=== PATIENT | male | born 1975 | race Caucasian/White ===

== ENCOUNTER 2020-06-29 10:33 | Emergency (ER) | payer OTHER, SELFPAY ==
--- NOTE | 2020-06-29 10:38 | ED.GENADULT ---
HPI - General Adult General Chief complaint: Neck Pain/Injury Stated complaint: Head and Neck Pain Time Seen by Provider: 06/29/20 10:51 Source: patient Mode of arrival: ambulatory Limitations: no limitations History of Present Illness HPI narrative: 44-year-old male patient presents to the [facility] with complaints of head and neck pain. 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 Patient states that he had a pretty hard and he actually did fall back. Denies loss of consciousness. Patient states he has a headache now at this time and rates about 7 out of 10. Patient states he did have a little bit of blurred vision right afterwards but denies any vision changes now. Patient states that he did vomit once since the injury. Patient also complaining of some neck pain and states it hurts when putting his chin to his chest. Patient denies any chest pain or shortness of breath. Denies taking anything for his pain since the incident. Patient states he is also having some numbness and tingling to bilateral upper extremities. Related Data Home Medications Medication Instructions Recorded Confirmed metformin 1,000 mg PO BID 06/29/20 06/29/20 Allergies Allergy/AdvReac Type Severity Reaction Status Date / Time No Known Drug Allergies Allergy Unknown Unknown Verified 06/29/20 10:52 Review of Systems Review of Systems: Narrative: CONSTITUTIONAL: Denies fever, chills, or sweats. EYES: Denies visual changes, redness, or discharge. ENT: Denies rhinorrhea, congestion, sore throat, or otalgia. CARDIOVASCULAR: Denies chest pain, palpitations, or edema. RESPIRATORY: Denies cough or dyspnea. GASTROINTESTINAL: Denies abdominal pain, nausea, positive vomiting, denies diarrhea. GENITOURINARY: Denies dysuria or hematuria. SKIN: Denies rash or itching. MUSCULOSKELETAL: Denies back pain, joint pain, or myalgia. NEUROLOGIC: Positive headache, positive tingling and numbness to bilateral upper arms, denies weakness. Positive neck pain PSYCHIATRIC: Denies anxiety or depression. PMFSH Comments At the time of my signature I agree with nursing past medical history, surgical, social, and family history. There is no relevant family history pertinent to the presenting complaint. Exam Narrative: Exam Narrative: GENERAL: Well-appearing, well-nourished, and in no acute distress. HEAD: Normocephalic, atraumatic. No trigger point for headache. No palpable scalp tenderness or obvious deformity noted. No surface trauma noted. EYES: PERRLA and EOM intact without limitation or complaint of pain, no periorbital soft tissue swelling ,no erythema, warmth or tenderness noted, no obvious deformity. No crusting or swelling.no tearing or draining.No photophobia. No nystagmus No FB or lesion on lid eversion. Corneas grossly clear, no obvious FB or hyphens/hypopyon. No injection to sclera. Lids and lashes clear.. ENT: Nares clear, no rhinorrhea or epistaxis. Mucous membranes moist. Posterior pharynx with no erythema, tonsillectomy, exudates or lesions present. Bilateral TMs are clear no erythema or foreign bodies of the canal NECK: Supple, no lymphadenopathy. No surface trauma, no soft tissue or muscle tenderness or spasm noted. Trachea midline. No subq emphysema or crepitus. Patient has bony tenderness noted to the C for C5 area to firm Palpation at posterior midline. Patient has pain with neck flexion and axial load. CHEST: Clear to auscultation. No respiratory distress. HEART: Regular rate and rhythm. No murmur heard. Normal peripheral pulses. ABDOMEN: Soft, nontender, nondistended, normal active bowel sounds. EXTREMITIES: Normal range of motion. No edema. SKIN: Warm, dry, no rash. NEURO: Alert and oriented x4, GCS 15. Cranial nerves II through XII grossly intact. No focal neurological deficits. Normal muscle strength and tone. Normal deep tendon reflexes. Negative Ba
[2020-06-29 10:40] VITALS: BP 135/85; PULSE 68; RESP 14; TEMP 36.6; O2SAT 100
== END 2020-06-29 11:10 | disposition short-term general hospital (02) ==
PROVIDERS: Emergency Provider Nurse Practitioner Family
DX: S09.90XA Unspecified injury of head, initial encounter (principal); W22.8XXA Striking against or struck by other objects, initial encounter; Y99.0 Civilian activity done for income or pay; M54.2 Cervicalgia
CPT/HCPCS: 99212; G0463; L0140

== ENCOUNTER 2021-10-29 16:28 | Emergency (ER) | payer OTHER, SELFPAY ==
--- NOTE | ~2021-10-29 | XR_ITS ---
EXAMINATION: XR ankle LT min 3V EXAM DATE: 10/29/2021 16:55 INDICATION: felt snap while walking. Pain left ankle. TECHNIQUE: Left ankle frontal, lateral and oblique projections obtained and reviewed. There is no pr ior study for comparison. FINDINGS: The left ankle mortise appears intact. Small posterior and inferior calcaneal spurs. The re are no acute fractures or dislocations identified. There is no subcutaneous gas. The soft tissue is unremarkable. There are no radiopaque foreign bodies. IMPRESSION: No acute osseous findings. Reviewed, dictated and finalized at location A. NG OPERATOR IMPRESSION: No acute osseous findings.
[2021-10-29 16:35] VITALS: BP 123/77; PULSE 75; RESP 18; TEMP 37.2; O2SAT 98
--- NOTE | 2021-10-29 17:25 | ED.LOWEXIN ---
HPI - Extremity Injury (Lower) General Chief Complaint: Extremity Injury, Lower Stated Complaint: left ankle injury History of Present Illness HPI Narrative: This is 46 year old male that was at work and was walking and felt a pop . Patient states that he then began to feel pain in after the pop and now it hurts when he walks on his foot Related Data Home Medications Medication Instructions Recorded Confirmed metformin 1,000 mg PO BID 06/29/20 10/29/21 empagliflozin [Jardiance] 10 mg PO DAILY 10/29/21 10/29/21 Allergies Allergy/AdvReac Type Severity Reaction Status Date / Time No Known Drug Allergies Allergy Unknown Unknown Verified 06/29/20 10:52 Review of Systems Review of Systems: Left ankle/foot pain All systems reviewed & are unremarkable except as noted in HPI and below PMFSH Comments At time as signature, I have reviewed and agree with nursing past medical, social, surgical and family history. Please see nursing chart for further information. There is no relevant family history pertinent to the presenting complaint. Exam Narrative: GENERAL:Well-appearing, well-nourished, and in no acute distress. HEAD:Normocephalic, EYES: PERRLA ENT: Nares clear, no rhinorrhea or epistaxis. Mucous membranes moist. CHEST: No respiratory distress. HEART: Regular rate and rhythm. ABDOMEN: Soft, nondistended, EXTREMITIES: Normal range of motion. No edema. SKIN: Warm, dry, no rash. NEURO: No focal deficits. Alert and oriented x3. And Course Course Emergency Course: Xray show no fracture Vital Signs Vital signs: Vital Signs Temperature 98.9 F 10/29/21 16:35 Pulse Rate 75 10/29/21 16:35 Respiratory Rate 18 10/29/21 16:35 Blood Pressure 123/77 10/29/21 16:35 Pulse Oximetry 98 10/29/21 16:35 Temperature 98.9 F 10/29/21 16:35 Pulse Rate 75 10/29/21 16:35 Respiratory Rate 18 10/29/21 16:35 Blood Pressure 123/77 10/29/21 16:35 Pulse Oximetry 98 10/29/21 16:35 MDM - Extremity Injury (Lower) Differential Diagnosis Differential diagnosis: Likely ankle sprain and strain, puncture wound of foot, fracture of toe and ankle fracture Discharge Plan Discharge Clinical Impression: Ankle sprain and strain Patient Disposition: Home, Self-Care Condition: Stable Instructions: Antibiotic Form, Ankle Strain (ED) Additional Instructions: Avoid weight bearing until the pain subsides. Ice to the area 20-30 minutes 4-6 times a day Elevate above heart Elastic wrap or orthopedic splint as directed for comfort for the next 5-7 days Crutches as directed if needed Tylenol for lesser pain Ibuprofen regularly for the next 2-3 days for the inflammation Follow up with your primary care provider if the condition is not improving within 1 week or sooner if the condition worsens with numbness, tingling, decrease sensation with weakness to seek ER. Prescriptions: No Action metformin 1,000 mg Tablet 1,000 mg PO BID RF: 0 Jardiance 10 mg tablet 10 mg PO DAILY RF: 0 Follow-up/Referrals: Jocelyne,Ariadna Simmons APN [Primary Care Provider] - Tim Navas MD [Physician] - (if pain does not subside in 5-7 days ) Stand Alone Forms: Work/School Release IP Time of Disposition: 17:27
== END 2021-10-29 17:35 | disposition home or self-care (01) ==
PROVIDERS: Emergency Provider Nurse Practitioner Family; PCP Nurse Practitioner Family
DX: S93.402A Sprain of unspecified ligament of left ankle, initial encounter (principal); S96.912A Strain of unspecified muscle and tendon at ankle and foot level, left foot, initial encounter; X58.XXXA Exposure to other specified factors, initial encounter; Y93.01 Activity, walking, marching and hiking; E11.9 Type 2 diabetes mellitus without complications
CPT/HCPCS: 73610; 99213; G0463